=== PATIENT | male | born 1960 | race Hispanic/Latino ===

== ENCOUNTER 2019-04-16 20:30 | Emergency (ER) | payer SELFPAY ==
[2019-04-16] MEDS ORDERED: Adacel (T-DAP) 0.5 ML SYRINGE ONE (20:55)
--- NOTE | 2019-04-16 21:45 | RAD ---
RADIOGRAPH LEFT KNEE 4VIEWS: DATE: 04/16/2019 HISTORY: 58-year-old male status post acute left knee trauma due to fall FINDINGS: There is no dislocation. No fracture is identified. Tiny focus of subcutaneous gas overlying thickene d patellar tendon slightly superior to tibial tubercle as seen on lateral view. IMPRESSION: 1. No fracture. 2. Anterior soft tissue laceration.
[2019-04-16] MEDS ORDERED: Lidocaine 1% w/Epinephrine 1:100K 20 ML VIAL ONE (22:20)
== END 2019-04-16 23:20 | disposition home or self-care (01) ==
LOC: ERS 20:30
DX: S81.012A Laceration without foreign body, left knee, initial encounter (principal); I10 Essential (primary) hypertension; Z23 Encounter for immunization; Z79.899 Other long term (current) drug therapy; Z86.73 Personal history of transient ischemic attack (TIA), and cerebral infarction without residual deficits; W18.30XA Fall on same level, unspecified, initial encounter
CPT/HCPCS: 12002; 90471; 90715